=== PATIENT | female | born 1990 | race Caucasian/White ===

== ENCOUNTER 2024-09-25 21:03 | Emergency (ER) | payer SELFPAY ==
[~2024-09-25] VITALS: Ht 167.6 cm; Wt 97.5 kg
[2024-09-25 22:12] LABS: BASO # 0.0 10*3/uL (0.0-0.1); BASO % 0.1 % (0.0-1.0); EOS # 0.2 10*3/uL (0.0-0.4); EOS % 3.0 % (1.0-4.0); MEAN CELL VOLUME 90.7 fl (81.0-99.0); MEAN CORPUSCULAR HGB 29.1 pg (27.0-31.0); MEAN PLATELET VOLUME 8.5 fl (9.6-12.3); MONO # 0.6 10*3/uL (0.1-1.0); MONO % 7.9 % (3.0-9.0); NEUT # 3.6 10*3/uL (2.3-7.9); NEUT % 45.0 % (47.0-73.0); NUCLEATED RED BLOOD CELL 0.0 % (0.0-0.0); NUCLEATED RED BLOOD CELL 0.0 10*3/uL (0.0-0.0); PLATELET COUNT AUTOMATED 288 10*3/uL (130-400); RED CELL DISTRI WIDTH 11.9 % (0-14.5)
[2024-09-25 22:34] LABS: BETA-HCG, QUANT < 3.0 mIU/mL (3-10); BUN 10 mg/dl (9-23)
== END 2024-09-25 22:47 | disposition home or self-care (01) ==
LOC: ED 21:03
PROVIDERS: Nurse Practitioner Family
DX: L27.0 Generalized skin eruption due to drugs and medicaments taken internally (principal); T38.815A Adverse effect of anterior pituitary [adenohypophyseal] hormones, initial encounter; Y92.89 Other specified places as the place of occurrence of the external cause

== ENCOUNTER 2024-10-04 12:30 | Emergency (ER) | payer SELFPAY ==
[~2024-10-04] VITALS: Ht 167.6 cm; Wt 97.5 kg
[2024-10-04] MEDS ORDERED: Motrin,Rufen800 MG PO (13:37)
[2024-10-04] MEDS ORDERED: PENICILLIN VK500 MG PO (13:37)
== END 2024-10-04 14:05 | disposition home or self-care (01) ==
LOC: ED 12:30
DX: K04.7 Periapical abscess without sinus (principal); Z32.02 Encounter for pregnancy test, result negative

== ENCOUNTER 2025-01-22 18:29 | Emergency (ER) | payer SELFPAY ==
[~2025-01-22] VITALS: Wt 98.4 kg
[~2025-01-22 18:29] MED LIST: Motrin,Rufen800 MG PO; PENICILLIN VK500 MG PO
[2025-01-22 18:51] LABS: BILIRUBIN 1+ (Negative); BLOOD Negative (Negative); CLARITY Clear (Clear); COLOR Dark Yellow (Yellow); KETONE Negative (Negative); LEUKO ESTERASE 1+ (Negative); NITRITE Positive (Negative); PH 6.0 (4.5-8.0); SPECIFIC GRAVITY 1.020 (1.001-1.030); UROBILINOGEN 1.0 E.U./dl (0.0-1.0)
[2025-01-22 18:58] LABS: BACTERIA 1+
[2025-01-22] MEDS ORDERED: CEPHALEXIN500 M1 PO (19:52)
== END 2025-01-22 20:08 | disposition home or self-care (01) ==
LOC: ED 18:29
PROVIDERS: Student in an Organized Health Care Education/Training Program
DX: N39.0 Urinary tract infection, site not specified (principal); B34.9 Viral infection, unspecified